=== PATIENT | male | born 2005 | race Caucasian/White ===

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

== ENCOUNTER 2025-05-13 00:29 | Outpatient (CLI) | payer MEDICAID, SELFPAY ==
--- NOTE | 2025-05-13 10:24 | DI.RAD_ITS ---
Exam(s) XR THORACIC SPINE COMPLETE EXAM: XR THORACIC SPINE COMPLETE CLINICAL HISTORY: mid thoracic back pain,worsening,M54.6. TECHNIQUE: 2D digital imaging was performed of the thoracic spine. Three views were obtained. AP, swimmer's and lateral views were obtained. COMPARISON: No exams were available for comparison FINDINGS: BONES: There is no fracture or destructive lesion. The vertebral bodies and posterior elements are unremarkable. DISKS:There is a very mild right convex curvature of the thoracic spine. This may be positional. Interverebral disc spaces are maintained. SOFT TISSUE: Visualized lungs are clear. IMPRESSION: Unremarkable radiographs of the thoracic spine. DATA REPOSITORY: RADIATION DOSE DELIVERED:
== END 2025-05-13 00:49 ==
LOC: DI 00:29
PROVIDERS: PCP Pediatrics; Visit Provider Pediatrics
DX: M54.6 Pain in thoracic spine (principal); G89.29 Other chronic pain
CPT/HCPCS: 72072

== ENCOUNTER 2025-05-13 01:08 | Outpatient (CLI) | payer MEDICAID, SELFPAY ==
[2025-05-13 10:21] LABS: Abs Immature Grans 0.02 10^3/uL (0.0-0.06); Absolute Basophil Count 0.06 10^3/uL (0.0-0.2); Absolute Eosinophil Count 0.33 10^3/uL (0.0-0.7); Absolute Lymphocyte Count 2.65 10^3/uL (1.2-3.4); Absolute Monocyte Count 0.77 10^3/uL (0.1-0.8); Absolute Neutrophil Count 4.09 10^3/uL (1.2-6.7); Basophils % 0.8 %; Eosinophils % 4.2 %; HCT 49.2 % (40.0-50.0); HGB 17.2 g/dL (13.5-17.5); Immature Grans % 0.3 %; Lymphocytes % 33.5 %; MCV 91 fL (80-95); MPV 11.1 fL (8.0-11.0); Monocytes % 9.7 %; Neutrophils % 51.5 %; Platelet Count 232 10^3/uL (130-400); RBC 5.38 10^6/uL (4.36-5.78); RDW 12.7 % (11.8-14.1); RDW-SD 42.5 fL; WBC 7.92 10^3/uL (4.4-10.8)
[2025-05-13 10:23] LABS: ESR 17 mm/hr (0-15)
[2025-05-13 10:37] LABS: Hemoglobin A1C 7.3 % (<5.7)
[2025-05-13 10:54] LABS: ALT 530 U/L (16-63); AST 305 U/L (15-37); Albumin 4.2 g/dL (3.4-5.0); Alkaline Phosphatase 127 U/L (46-116); Anion Gap 8.6 mmol/L (3-11); BUN 13 mg/dL (7-18); Bilirubin, Total 0.9 mg/dL (0.2-1.0); C-Reactive Protein 1.67 mg/dL (<or=0.5); CO2 29.4 mmol/L (21.0-32.0); CREATININE 0.9 mg/dL (0.70-1.30); Calcium 9.6 mg/dL (8.5-10.1); Calculated LDL 141 mg/dL (<100); Chloride 100 mmol/L (98-107); Cholesterol 205 mg/dL (<200); Estimated GFR 125.39 (mL/min/1.73m2); Glucose 163 mg/dL (74-106); HDL Cholesterol 26 mg/dL (>or=40); Potassium 4.2 mmol/L (3.5-5.1); Sodium 138 mmol/L (136-145); TSH (W/Ref FT4) 5.65 uIU/mL (0.36-3.74); Total Protein 8.7 g/dL (6.4-8.2); Triglyceride 191 mg/dL (<150)
[2025-05-13 11:10] LABS: FREE T4 1.24 ng/dL (0.76-1.46)
[2025-05-14 14:28] LABS: IgA 281 mg/dL (85-499); Interpretation (See Note); Tissue Transglutaminase IgA 15.7 CU (<20.0)
== END 2025-05-13 01:09 | disposition home or self-care (01) ==
PROVIDERS: PCP Pediatrics; Visit Provider Pediatrics
DX: M54.6 Pain in thoracic spine (principal); G89.29 Other chronic pain; E78.01 Familial hypercholesterolemia; K76.0 Fatty (change of) liver, not elsewhere classified; R11.10 Vomiting, unspecified; R10.9 Unspecified abdominal pain
CPT/HCPCS: 36415; 80053; 80061; 82784; 83516; 85652; 83036; 84439; 84443; 85025; 86140

== ENCOUNTER 2025-05-27 02:08 | Outpatient (CLI) | payer MEDICAID, SELFPAY ==
[2025-05-29 14:50] LABS: Liver/Kidney Microsome Type 1 <5.0 U
[2025-05-31 17:03] LABS: Alkaline Phosphatase 118 U/L (40 - 129); Liver % 31.7 % (30.2-74.7)
== END 2025-05-27 02:09 | disposition home or self-care (01) ==
LOC: LBO 02:08
PROVIDERS: PCP Pediatrics; Visit Provider Pediatrics
DX: K76.0 Fatty (change of) liver, not elsewhere classified (principal); R74.01 Elevation of levels of liver transaminase levels
CPT/HCPCS: 36415; 84075; 84080; 86255

== ENCOUNTER 2025-06-17 09:08 | Outpatient (CLI) | payer MEDICAID, SELFPAY ==
[2025-06-17 09:48] LABS: Hemoglobin A1C 6.5 % (<5.7)
[2025-06-17 10:17] LABS: ALT 319 U/L (16-63); AST 115 U/L (15-37); Albumin 4.2 g/dL (3.4-5.0); Alkaline Phosphatase 109 U/L (46-116); Anion Gap 7.1 mmol/L (3-11); BUN 13 mg/dL (7-18); Bilirubin, Total 0.6 mg/dL (0.2-1.0); CO2 28.9 mmol/L (21.0-32.0); Calcium 9.4 mg/dL (8.5-10.1); Chloride 104 mmol/L (98-107); Estimated GFR 129.93 (mL/min/1.73m2); Glucose 122 mg/dL (74-106); Potassium 4.1 mmol/L (3.5-5.1); Sodium 140 mmol/L (136-145); TSH (W/Ref FT4) 3.10 uIU/mL (0.36-3.74); Total Protein 8.1 g/dL (6.4-8.2)
== END 2025-06-17 09:09 | disposition home or self-care (01) ==
LOC: LBO 09:08
PROVIDERS: PCP Pediatrics; Visit Provider Pediatrics
DX: E11.9 Type 2 diabetes mellitus without complications (principal); K76.0 Fatty (change of) liver, not elsewhere classified
CPT/HCPCS: 36415; 80053; 83036; 83970; 84100; 84443

== ENCOUNTER → 2025-10-29 15:33 | Outpatient (CLI) | payer MEDICAID, SELFPAY ==
--- NOTE | 2025-10-29 15:19 | DI.RAD_ITS ---
Exam(s) XR CHEST 2V PA LATERAL EXAM: XR CHEST 2V PA LATERAL CLINICAL HISTORY: R05.3 Chronic cough x 2 weeks, worse, mild dyspnea. TECHNIQUE: 2D digital imaging was performed. COMPARISON: CR,XR XR CHEST 2V PA LATERAL from 09/18/2024 FINDINGS: 2 views: Heart size is normal. The mediastinum is not widened. Lungs are clear. No infiltrates nor pleural effusions. IMPRESSION: No acute pulmonary findings. DATA REPOSITORY: RADIATION DOSE DELIVERED:
== END ==
LOC: DI 15:34
PROVIDERS: PCP Pediatrics; Visit Provider Pediatrics
DX: R05.3 Chronic cough (principal)
CPT/HCPCS: 71046

== ENCOUNTER 2025-11-05 15:56 | Outpatient (REF) | payer MEDICAID, SELFPAY | END 2025-11-05 15:57 | disposition home or self-care (01) | LOC: LBN 15:56 | PROVIDERS: PCP Pediatrics; Referring Provider Pediatrics; Visit Provider Pediatrics | DX: J02.9 Acute pharyngitis, unspecified (principal) | CPT/HCPCS: 87081 ==